=== PATIENT | male | born 1965 | race Two or more races ===

== ENCOUNTER → 2025-01-27 | Day surgery (SDC) | payer MEDICARE, MEDICAID, SELFPAY ==
--- NOTE | 2025-01-26 07:00 | EKG_ITS ---
[facility] Test Date: 2025-01-26 Pat Name: MELE DARBY Department: Room: - Gender: Male New Accounts Clerk: AUBREE : 1965 Requested By: Joao Emmanuel Order Number: [id number] Reading MD: Joao Emmanuel Measurements Intervals [place] Rate: 85 P: 42 HI: 163 QRS: -27 QRSD: 108 T: 75 QT: 361 QTc: 431 Interpretive Statements SINUS RHYTHM BORDERLINE LEFT AXIS DEVIATION [QRS AXIS < -20] NONSPECIFIC T-WAVE ABNORMALITY Compared to ECG 03/05/2023 07:54:52 Intraventricular conduction delay no longer present T-wave abnormality still present /store/S0/[id number].pdf
[2025-01-26 09:00] VITALS: BMI 35.9
[2025-01-26 09:55] LABS: Collection Type, Urine Clean Catch; Squamous Epithelial Cell,Urine 0 /hpf (0-5)
[2025-01-26 10:11] LABS: Basophils # (Auto) 0.1 Thou/mm3 (0.0-0.2); Basophils % (Auto) 1 % (0-2.5); Eosinophils # (Auto) 0.1 Thou/mm3 (0.0-0.5); Eosinophils % (Auto) 2 % (0-10); Hematocrit 45.4 % (41.0-53.0); Hemoglobin 15.3 g/dL (13.5-16.0); Immature Granulocytes % (Auto) 0 % (0-0); Immature Granulocytes Auto 0.03 Thou/mm3 (0.00-0.00); Lymphocytes # (Auto) 1.9 Thou/mm3 (1.0-4.8); Lymphocytes % (Auto) 24 % (10-50); Mean Corpuscular HGB Conc 33.7 g/dl (31.0-37.0); Mean Corpuscular Hemoglobin 27.4 pg (25.0-35.0); Mean Corpuscular Volume 81 fL (80-100); Monocytes # (Auto) 0.4 Thou/mm3 (0.0-0.8); Monocytes % (Auto) 5 % (0-12); Neutrophils # (Auto) 5.5 Thou/mm3 (1.8-7.7); Neutrophils % (Auto) 68 % (37-80); Nucleated Red Blood Cell % 0 /100 WBC (0); Platelet Count 273 Thou/mm3 (140-440); RDW Standard Deviation 39.1 fL (35.1-43.9); Red Blood Count 5.58 Miln/mm3 (4.50-5.90)
[2025-01-26 10:18] LABS: Bilirubin,Urine Negative (Negative); Blood,Urine Negative (Negative); Clarity,Urine Clear (Clear/Hazy); Color,Urine Lt-Yellow (Lt Yel-Yel); Glucose, Urine 4+ (Negative); Ketones,Urine Negative (Negative); Leukocyte Esterase,Urine Negative (Negative); Nitrite,Urine Negative (Negative); Protein,Urine Trace (Neg - Trace); RBC,Urine 1 /hpf (0-3); Specific Gravity,Urine 1.023 (1.001-1.035); Urobilinogen,Urine Negative mg/dL (0.0-1.0); WBC,Urine < 1 /hpf (0-5)
[2025-01-26 10:29] LABS: Alanine Aminotransferase 28 U/L (10-49); Albumin, Serum 4.6 gm/dL (3.5-5.0); Albumin/Globulin Ratio 1.8 (1.2-2.2); Alkaline Phosphatase 137 U/L (46-116); Anion Gap 9 (7-16); Aspartate Amino Transferase 23 U/L (0-34); BUN/Creatinine Ratio 14 Ratio (12-20); Bilirubin,Total 0.6 mg/dL (0.3-1.2); Blood Urea Nitrogen 15 mg/dL (9-23); Calcium 9.6 mg/dL (8.3-10.6); Calcium (Corrected) 9.6 mg/dL (8.5-10.1); Carbon Dioxide 26.4 mMol/L (20.0-31.0); Chloride 104 mMol/L (98-107); Creatinine (Component) 1.1 mg/dL (0.6-1.3); Estimated Creatinine Clearance 70.8 mL/min (>60); Globulin 2.5 gm/dL (2.3-3.5); Glucose 303 mg/dL (74-106); Osmolality,Calculated 289 (275-295); Potassium 4.2 mMol/L (3.4-5.1); Sodium 139 mMol/L (136-145); Total Protein 7.1 gm/dL (5.7-8.2); eGFR > 60 See Note
--- NOTE | 2025-01-26 15:09 | ESHP_ITS ---
RE: MELE DARBY : 1965 DATE OF ADMISSION: 01/26/2025 HISTORY OF PRESENT ILLNESS: The patient is a Faroese-speaking male. He has nocturia at times. Urine comes out slow. He has PSA of 8.8. There is no history of gross hematuria. The patient has sometimes some burning. PAST MEDICAL HISTORY: He has a history of diabetes mellitus, history of valley fever, history of hypertension. PAST SURGICAL HISTORY: Right knee operation. He had an angiogram done and a stent placed in his heart. He had a cholecystectomy, colon surgery in [place]. HOME MEDICATIONS: He takes: 1. Losartan. 2. Metoprolol. 3. Norvasc. 4. Glyburide. 5. Jardiance. 6. Janumet. 7. Diflucan. 8. Isosorbide. 9. Nitroglycerin. 10. Aspirin. 11. Statin medication. 12. Plavix. ALLERGIES: NONE KNOWN. SOCIAL HISTORY: He has 5 kids. PHYSICAL EXAMINATION: HEENT: Normal. NECK: Supple. LUNGS: Clear. CARDIOVASCULAR: Heart sounds are normal. ABDOMEN: Soft without new organomegaly. No guarding. No rigidity. The patient does have a small umbilical hernia. GENITOURINARY: Phallus is normal. Testes are down in scrotum. RECTAL: Rectal examination reveals moderately enlarged prostate with some firmness in the right prostatic lobe. EXTREMITIES: Normal. The patient's serum creatinine is 0.88. RECOMMENDATIONS: Cystoscopy and transrectal prostatic ultrasound with ultrasound-guided prostatic needle biopsy. Planned procedure, risks and complications have been discussed with the patient. The patient has understood them and agreed to proceed. DT: 11:56:21 TT: 14:54:00 Ref: [id number] - TID: [id number]
--- NOTE | 2025-01-26 15:14 | SUR.PREOP ---
Pt has history of coronary stents 2 yrs ago, Pt sees Dr Shanelle Neely at [facility] in [place], records requested and waiting....
--- NOTE | 2025-01-26 15:19 | SUR.PREOP ---
Pt notified to come in tomorrow at [id number]
[2025-01-27 09:55] VITALS: BP 138/85; PULSE 85; RESP 17; TEMP 36.9; O2SAT 95
--- NOTE | 2025-01-27 10:00 | SUR.PREOP ---
informed Dr Emmanuel that pt took Plavix on 01/25/25, per Dr Emmanuel the surgery will be cancelled.
== END | disposition home or self-care (01) ==
PROVIDERS: Anesthesiology; PCP Family Medicine; Referring Provider Surgery; Visit Provider Surgery
PROC: (CPT 55700; principal; 2025-01-27 11:30)
PROC: 0TJB8ZZ Inspection of Bladder, Via Natural or Artificial Opening Endoscopic (ICD-10-PCS; CPT 52000; 2025-01-27 11:30)
DX: N40.1 Benign prostatic hyperplasia with lower urinary tract symptoms (principal); R35.1 Nocturia; R97.20 Elevated prostate specific antigen [PSA]; Z53.09 Procedure and treatment not carried out because of other contraindication; E11.9 Type 2 diabetes mellitus without complications; I10 Essential (primary) hypertension; Z90.49 Acquired absence of other specified parts of digestive tract
CPT/HCPCS: 36415; 80053; 81001; 85025; 93005

== ENCOUNTER 2025-03-21 06:05 | Day surgery (SDC) | payer MEDICARE, SELFPAY ==
[2025-03-17 06:46] VITALS: BMI 33.2
[2025-03-17 07:29] LABS: Collection Type, Urine Clean Catch; Squamous Epithelial Cell,Urine 0 /hpf (0-5)
[2025-03-17 08:10] LABS: Basophils % (Auto) 0 % (0-2.5); Eosinophils # (Auto) 0.1 Thou/mm3 (0.0-0.5); Eosinophils % (Auto) 1 % (0-10); Hematocrit 42.6 % (41.0-53.0); Hemoglobin 14.8 g/dL (13.5-16.0); Immature Granulocytes % (Auto) 0 % (0-0); Immature Granulocytes Auto 0.02 Thou/mm3 (0.00-0.00); Lymphocytes # (Auto) 2.1 Thou/mm3 (1.0-4.8); Lymphocytes % (Auto) 25 % (10-50); Mean Corpuscular HGB Conc 34.7 g/dl (31.0-37.0); Mean Corpuscular Hemoglobin 27.7 pg (25.0-35.0); Mean Corpuscular Volume 80 fL (80-100); Monocytes # (Auto) 0.5 Thou/mm3 (0.0-0.8); Monocytes % (Auto) 5 % (0-12); Neutrophils # (Auto) 5.7 Thou/mm3 (1.8-7.7); Neutrophils % (Auto) 68 % (37-80); Nucleated Red Blood Cell % 0 /100 WBC (0); Platelet Count 228 Thou/mm3 (140-440); RDW Standard Deviation 37.7 fL (35.1-43.9); Red Blood Count 5.35 Miln/mm3 (4.50-5.90); White Blood Count 8.3 Thou/mm3 (3.8-10.6)
[2025-03-17 08:19] LABS: Alanine Aminotransferase 31 U/L (10-49); Albumin, Serum 4.3 gm/dL (3.5-5.0); Albumin/Globulin Ratio 1.9 (1.2-2.2); Alkaline Phosphatase 139 U/L (46-116); Anion Gap 15 (7-16); Aspartate Amino Transferase 23 U/L (0-34); BUN/Creatinine Ratio 17 Ratio (12-20); Bilirubin,Total 0.5 mg/dL (0.3-1.2); Blood Urea Nitrogen 17 mg/dL (9-23); Calcium 8.8 mg/dL (8.3-10.6); Calcium (Corrected) 8.8 mg/dL (8.5-10.1); Carbon Dioxide 23.3 mMol/L (20.0-31.0); Chloride 103 mMol/L (98-107); Estimated Creatinine Clearance 80.4 mL/min (>60); Globulin 2.3 gm/dL (2.3-3.5); Glucose 261 mg/dL (74-106); Osmolality,Calculated 291 (275-295); Potassium 3.8 mMol/L (3.4-5.1); Sodium 141 mMol/L (136-145); Total Protein 6.6 gm/dL (5.7-8.2); eGFR > 60 See Note
[2025-03-17 08:21] LABS: Bilirubin,Urine Negative (Negative); Blood,Urine Trace (Negative); Clarity,Urine Clear (Clear/Hazy); Color,Urine Lt-Yellow (Lt Yel-Yel); Glucose, Urine 4+ (Negative); Ketones,Urine Negative (Negative); Leukocyte Esterase,Urine Negative (Negative); Nitrite,Urine Negative (Negative); Protein,Urine Trace (Neg - Trace); RBC,Urine 3 /hpf (0-3); Specific Gravity,Urine 1.026 (1.001-1.035); Urobilinogen,Urine Negative mg/dL (0.0-1.0); WBC,Urine 1 /hpf (0-5)
--- NOTE | 2025-03-20 11:32 | ESHP_ITS ---
RE: MELE DARBY : 1965 DATE OF ADMISSION: 03/21/2025 HISTORY OF PRESENT ILLNESS: Mele Darby is a 59-year-old gentleman, Samoan-speaking. He has a frequency, urinates 8 times at night. His urinary is coming out somewhat slower. It takes a while to urinate. No history of blood in the urine. Some burning in the urine. The patient's PSA is 8.8. PAST SURGICAL HISTORY: Right knee operation, angiogram and stent placement, cholecystectomy, colon operation in [place]. PAST MEDICAL HISTORY: He has a history of diabetes mellitus, history of valley fever, history of hypertension. SOCIAL HISTORY: He has 5 children. HOME MEDICATIONS: He takes; 1. Losartan. 2. Metoprolol. 3. Norvasc. 4. Glyburide. 5. Jardiance. 6. Janumet. 7. Plavix. 8. Diflucan. 9. Isosorbide. 10. Nitroglycerin. 11. Aspirin. 12. Statin medication. ALLERGIES: NONE KNOWN. PHYSICAL EXAMINATION: HEENT: Normal. NECK: Supple. LUNGS: Clear. CARDIOVASCULAR: Heart sounds are normal. ABDOMEN: Abdomen is soft without any organomegaly. No guarding. The patient does have a small umbilical hernia. GENITOURINARY: Phallus is normal. Testicle are down in scrotum. RECTAL: Reveals moderately enlarged prostate with some firmness in the right prostatic lobe. PLAN: The patient was once scheduled, but he was on Plavix and he was canceled. Now he is scheduled again. The patient is asked to stop Plavix 1 week prior to the procedure. The patient is now scheduled to have cystoscopy, transrectal prostatic ultrasound with ultrasound-guided prostatic needle biopsy. Planned procedure, risks, and complications have been discussed with the patient. The patient has understood them and agreed to proceed. DT: 10:52:27 TT: 11:30:00 Ref: [id number] - TID: [id number]
--- NOTE | 2025-03-20 14:55 | SUR.PREOP ---
Cardiac records requested from [facility] in [facility] for records......
[2025-03-21 07:00] VITALS: BP 149/82; PULSE 93; RESP 18; TEMP 36.7; O2SAT 97; BMI 32.7
[2025-03-21] MEDS: RINGERS LACTATED 1000 ML 1,000 ML 20 ML IV (07:21)
--- NOTE | 2025-03-21 08:30 | XR_ITS ---
Examination: Transrectal prostate sonography Date and time: March 21, 2025 0845 hours INDICATIONS: Prostate biopsies in the OR today under ultrasound guidance TECHNIQUE AND FINDINGS: Transrectal prostate sonographic images obtained for prostate biopsies by physician in the OR IMPRESSION: Transrectal prostate sonographic images obtained for prostate biopsy by physician in the OR
[2025-03-21 08:59] VITALS: BP 126/79; PULSE 93; RESP 16; TEMP 36.8; O2SAT 93
--- NOTE | 2025-03-21 08:59 | SUR.PHASEII ---
0859: Pt. AAOx4, vitals stable, breathing unlabored, no complaint of pain or nausea, no dressing in place, no active bleed noted, report received from MD Guerrero and Tigre KING.
[2025-03-21 09:04] VITALS: BP 126/73; PULSE 93; RESP 16; TEMP 36.7; O2SAT 92
[2025-03-21 09:09] VITALS: BP 135/73; PULSE 91; RESP 13; TEMP 36.7; O2SAT 93
[2025-03-21 09:14] VITALS: BP 134/76; PULSE 92; RESP 16; TEMP 36.7; O2SAT 94
[2025-03-21 09:29] VITALS: BP 131/72; PULSE 91; RESP 17; TEMP 36.8; O2SAT 92
--- NOTE | 2025-03-21 09:35 | SUR.PHASEII ---
0935: Pt. AAOx4, vitals stable, breathing unlabored, no complaint of pain or nausea, no dressing in place, no active bleed noted, pt. tolerated sips of water well, pt. ambulated to wheelchair with steady gait and no assist, no complications. Gave discharge instructions to the pt. and his ride using interpreter deaf, both verbalized understanding and had no further questions. Pt. left with all personal belongings.
--- NOTE | 2025-03-21 11:30 | ESOP_ITS ---
RE: MELE DARBY : 1965 DATE OF OPERATION: 03/21/2025 PREOPERATIVE DIAGNOSIS: Prostatism, prostatic obstruction, elevated PSA of 8.8. POSTOPERATIVE DIAGNOSIS: Prostatism, prostatic obstruction, elevated PSA of 8.8. PROCEDURE PERFORMED: Cystoscopy, urethral dilatation, transrectal prostatic ultrasound with ultrasound-guided prostatic needle biopsy. ANESTHESIA: Monitored anesthesia by Dr. Guerrero. INDICATION: The patient is a 59-year-old male with elevated PSA of 8.8. He urinates 6-8 times at night. He is now scheduled to have cystoscopy and transrectal prostatic ultrasound with ultrasound-guided prostatic needle biopsy. Planned procedure, risks, and complications have been discussed with the patient. The patient understood them and agreed to proceed. Rectally, the patient has a moderately enlarged prostate without any hard nodules. DESCRIPTION OF PROCEDURE: After the patient was brought to the operating table under adequate monitored anesthesia and dorsal lithotomy position, parts were prepped and draped in the usual fashion. Cystoscopy was then carried out, which revealed adequate urethral meatus, normal-appearing urethra, mild to moderately enlarged bilobed prostate. Residual urine is 2 ounces, yellow and clear. There are no intravesical stones or tumors. Ureteral orifice are found to be normal in position and appearance. Scope was withdrawn. The patient was then turned in left lateral position. Transrectal prostatic ultrasound was carried out. Biopsies were obtained from both lobes using ultrasound guidance. Prostatic volume was measured at 37 mL. The patient tolerated the entire procedure well and left the room in good condition. DT: 09:09:48 TT: 11:29:00 Ref: [id number] - TID: [id number]
== END 2025-03-21 09:35 | disposition home or self-care (01) ==
PROVIDERS: Anesthesiology; PCP Family Medicine; Referring Provider Surgery; Visit Provider Surgery
PROC: 0TJB8ZZ Inspection of Bladder, Via Natural or Artificial Opening Endoscopic (ICD-10-PCS; CPT 52000; principal; 2025-03-21 08:30)
PROC: (CPT 55700; 2025-03-21 08:30)
DX: N40.1 Benign prostatic hyperplasia with lower urinary tract symptoms (principal); R97.20 Elevated prostate specific antigen [PSA]
CPT/HCPCS: 52281; 55700; 36415; 76942; 80053; 81001; 85025; 87086; A4217; A4649; J0694; J2250; J2704; J3010; J3490; J7120